=== PATIENT | female | born 1975 | race Caucasian/White ===

== ENCOUNTER → 2017-02-09 | Outpatient (CLI) | payer MEDICAID ==
--- NOTE | 2017-02-10 09:06 | MM ---
Reason for exam: screening (asymptomatic). Last mammogram was performed 1 year ago. History: Patient had first child at age 33. Family history of breast cancer in maternal grandmother. Benign excisional biopsy of the left breast, 2014. Taking hormonal contraceptives for 1 year. Physical Findings: A clinical breast exam by your physician is recommended on an annual basis and results should be correlated with mammographic findings. MG 3D Screening Mammo W/Cad Bilateral CC and MLO view(s) were taken. Prior study comparison: February 07, 2016, bilateral MG 3d screening mammo w/cad. January 24, 2014, mammogram, performed at [facility]. The breast tissue is extremely dense which could obscure a lesion on mammography. Finding #1: There is a 10 mm equal density (isodense), obscured mass in the central position of the right breast. Finding #2: There are typically benign calcifications in both breasts. Previous mammotome biopsy in the left breast. ASSESSMENT: Incomplete: need additional imaging evaluation, BI-RAD 0 RECOMMENDATION: Special view mammogram and ultrasound of the right breast. [facility] will attempt to contact patient to return for supplemental views and ultrasound.
== END | disposition home or self-care (01) ==
LOC: RADMAMWWP 14:32
PROVIDERS: ATTEND Obstetrics & Gynecology
DX: Z12.31 Encounter for screening mammogram for malignant neoplasm of breast (principal)
CPT/HCPCS: 77063; G0202

== ENCOUNTER → 2017-02-11 | Outpatient (CLI) | payer MEDICAID ==
--- NOTE | 2017-02-11 12:42 | MM ---
Reason for exam: additional evaluation requested from abnormal screening. Last mammogram was performed less than 1 month ago. History: Patient had first child at age 33. Family history of breast cancer in maternal grandmother. Benign excisional biopsy of the left breast, 2014. Taking hormonal contraceptives for 1 year. Physical Findings: Nurse did not find any significant physical abnormalities on exam. MG 3D Work Up W/Cad RT Spot compression CC, spot compression MLO, and ML view(s) were taken of the right breast. Prior study comparison: February 09, 2017, bilateral MG 3d screening mammo w/cad. February 07, 2016, bilateral MG 3d screening mammo w/cad. The breast tissue is extremely dense which could obscure a lesion on mammography. There is a persistent 6.3mm mass upper outer quadrant right breast at middle depth. These results were verbally communicated with the patient and result sheet given to the patient on 02/11/17. ASSESSMENT: Incomplete: need additional imaging evaluation, BI-RAD 0 RECOMMENDATION: Ultrasound of the right breast. (upper outer quadrant)
--- NOTE | 2017-02-11 12:47 | USB ---
Reason for exam: additional evaluation requested from abnormal screening. History: Patient had first child at age 33. Family history of breast cancer in maternal grandmother. Benign excisional biopsy of the left breast, 2015. Taking hormonal contraceptives for 1 year. US Breast Workup Limited RT Technologist: Cheri Diallo Right breast ultrasound demonstrates a 0.6 x 0.4 x 0.8cm cystic lesion at 9 o'clock septations versus mass, a 0.5 x 0.4 x 0.5cm mixed lesion at the nipple for which an attempt to aspirate and if unsuccessful a biopsy is recommended and a 0.7 x 0.3 x 0.5cm benign, cystic lesion at 9 o'clock. These results were verbally communicated with the patient and result sheet given to the patient on 02/11/17. ASSESSMENT: Suspicious, BI-RAD 4 RECOMMENDATION: Aspiration and ultrasound core biopsy of the right breast. Called Dr. Tay with mammographic findings and has scheduled an appointment for the patient for 02/26/17 at 9:[address] Velasco. Biopsy scheduled for 02/12/17 at 10:00. PRELIMINARY REPORT CALLED AND FAXED TO DR. VELASCO ON 02/11/17.
== END ==
LOC: RADMAMWWP 09:36
PROVIDERS: ATTEND Obstetrics & Gynecology
DX: R92.8 Other abnormal and inconclusive findings on diagnostic imaging of breast (principal); Z80.3 Family history of malignant neoplasm of breast
CPT/HCPCS: 76642; G0206; G0279

== ENCOUNTER → 2017-02-12 | Day surgery (SDC) | payer MEDICAID ==
[2017-02-12 10:13] VITALS: RESP 16; BMI 24.0
[2017-02-12 11:37] VITALS: BP 115/76; PULSE 62; TEMP 98.5
--- NOTE | 2017-02-12 13:45 | USB ---
EXAMINATION TYPE: US biopsy breast VAD RT, Post biopsy diagnostic mammo RT wo CAD DATE OF EXAM: 02/12/2017 CLINICAL HISTORY: 41-year-old female R92.8 Abn mammo. TECHNIQUE: Ultrasound guided core biopsy of the right breast. COMPARISON: 02/11/2017 and 02/09/2017 FINDINGS: The procedure of ultrasound guided core biopsy was explained to the patient. Benefits, alternatives, and risks were discussed. An informed consent was then obtained. The patient was placed in supine positioning for imaging and for the procedure. The overlying skin was prepped and draped in usual sterile fashion. Lidocaine was used as anesthetic into the skin and subcutaneous tissue up to area of concern in the right breast. The round 5 x 4 mm hypoechoic structure in the subareolar region shows posterior through transmission. Under ultrasound guidance, a 13-gauge vacuum-assisted mammotome biopsy device was used to obtain 4 core samples. Following this, a coil clip was left at the site of biopsy. The lesion collapsed after the first pass suggesting a complicated cyst. The patient tolerated the procedure well without any immediate complication. The patient was kept in the radiology department for short stay after the procedure and then discharged home in stable condition. Postprocedure mammogram shows a coil clip in the 5:00 position. IMPRESSION: Successful, uncomplicated ultrasound guided core biopsy of area of concern in the right breast, a complicated cyst is favored. Full pathology results to follow. RECOMMENDATION: 1. Follow pathology results. 2. In the event of a benign biopsy, six-month follow-up right breast ultrasound is recommended for the 9:00 cyst cluster versus complex cyst which probably corresponds to the initially questioned mammographic finding. Pathology Results: Benign BREAST, RIGHT, ULTRASOUND GUIDED CORE BIOPSY: FIBROCYSTIC CHANGE (STROMAL FIBROSIS, CYST FORMATION, APOCRINE METAPLASIA, ADENOSIS, FIBROADENOMATOUS HYPERPLASIA AND DUCT HYPERPLASIA). Recommendation Follow up mammogram and ultrasound of the right breast in 6 months. (with particular attention to the 9 o'clock cystic cluster versus complex cyst) CLEOPATRA
== END ==
LOC: RADUSWWP 09:49
PROVIDERS: ATTEND Surgery
DX: N60.31 Fibrosclerosis of right breast (principal); N60.01 Solitary cyst of right breast; R92.8 Other abnormal and inconclusive findings on diagnostic imaging of breast; N60.81 Other benign mammary dysplasias of right breast; N60.21 Fibroadenosis of right breast; Z88.8 Allergy status to other drugs, medicaments and biological substances
CPT/HCPCS: 88305; 19083; G0206; A4648; J2001

== ENCOUNTER → 2017-08-10 | Day surgery (SDC) | payer MEDICAID | LOC: CATHCVL 12:11 | PROVIDERS: ATTEND Internal Medicine Clinical Cardiac Electrophysiology | DX: I49.3 Ventricular premature depolarization (principal); Z53.9 Procedure and treatment not carried out, unspecified reason ==

== ENCOUNTER → 2017-08-10 | Outpatient (CLI) | payer MEDICAID ==
--- NOTE | 2017-08-13 12:09 | HM ---
HOLTER MONITOR REPORT This is a 48-hour Holter monitor. This 48-hour Holter monitor shows sinus rhythm with frequent PVCs. PVC burden is less than 3%. Occasional exaggerated sinus rhythm is noted. No nonsustained ventricular tachycardia noted. IMPRESSION: Frequent PVCs. PVC burden is about 3%, but without any nonsustained ventricular tachycardia. MMIMELDA / JAELN: [id number] /
== END | disposition home or self-care (01) ==
LOC: RADECHMAIN 12:53
PROVIDERS: ATTEND Internal Medicine Clinical Cardiac Electrophysiology
DX: I49.3 Ventricular premature depolarization (principal)
CPT/HCPCS: 93225; 93226

== ENCOUNTER → 2017-08-11 | Outpatient (CLI) | payer MEDICAID ==
--- NOTE | 2017-08-12 11:02 | ECHOF ---
Referral Reason:PVCS I49.3 MEASUREMENTS -------- HEIGHT: 162.6 cm WEIGHT: 63.5 kg BP: IVSd: 0.7 cm (0.6 - 1.1) LVIDd: 4.3 cm (3.9 - 5.3) LVPWd: 0.8 cm (0.6 - 1.1) IVSs: 1.2 cm LVIDs: 2.4 cm LVPWs: 1.3 cm LAESV Index (A-L): 19.78 ml/m Ao Diam: 2.8 cm (2.0 - 3.7) AV Cusp: 1.9 cm (1.5 - 2.6) LA Diam: 2.8 cm (2.7 - 3.8) MV EXCURSION: 14.100 mm (> 18.000) MV EF SLOPE: 118 mm/s (70 - 150) EPSS: 0.3 cm MV E Andrés: 0.74 m/s MV DecT: 163 ms MV A Andrés: 0.60 m/s MV E/A Ratio: 1.24 RAP: 5.00 mmHg RVSP: 20.60 mmHg FINDINGS -------- Sinus rhythm with extra systolic beats. This was a technically good study. The left ventricular size is normal. Left ventricular wall thickness is normal. Overall left vent ricular systolic function is normal with, an EF between 55 - 60 %. The right ventricle is normal in size and function. The left atrium is normal in size. The right atrium is normal in size. Aneurysmal Interatrial septum. The aortic valve is trileaflet, and appears structurally normal. No aortic stenosis or regurgitation. Mild mitral regurgitation is present. Trace tricuspid regurgitation present. The right ventricular systolic pressure, as measured by Dopp ler, is 20.60mmHg. Pulmonic valve appears structurally normal. The aortic root size is normal. The pericardium is normal. CONCLUSIONS -------- 1. Sinus rhythm with extra systolic beats. 2. This was a technically good study. 3. The left ventricular size is normal. 4. Left ventricular wall thickness is normal. 5. Overall left ventricular systolic function is normal with, an EF between 55 - 60 %. 6. The right ventricle is normal in size and function. 7. The left atrium is normal in size. 8. The right atrium is normal in size. 9. Aneurysmal Interatrial septum. 10. The aortic valve is trileaflet, and appears structurally normal. No aortic stenosis or regurgitat ion. 11. Mild mitral regurgitation is present. 12. Trace tricuspid regurgitation present. 13. The right ventricular systolic pressure, as measured by Doppler, is 20.60mmHg. 14. Pulmonic valve appears structurally normal. 15. The aortic root size is normal. 16. The pericardium is normal. DIRECT CARE STAFFER: Che Merrill RDCS
== END ==
LOC: RADECHMAIN 12:58
PROVIDERS: ATTEND Internal Medicine Clinical Cardiac Electrophysiology
DX: I34.0 Nonrheumatic mitral (valve) insufficiency (principal); Q21.1 Atrial septal defect
CPT/HCPCS: 93306

== ENCOUNTER → 2017-08-19 | Outpatient (CLI) | payer MEDICAID ==
--- NOTE | 2017-08-20 08:18 | USB ---
Reason for exam: follow-up at short interval from prior study. History: Patient had first child at age 33. Family history of breast cancer in maternal grandmother. Benign US biopsy breast VAD RT of the right breast, February 12, 2017. Benign excisional biopsy of the left breast, 2014. Taking hormonal contraceptives for 1 year. Physical Findings: Nurse did not find any significant physical abnormalities on exam. US Breast RT Right breast ultrasound includes all four quadrants, the retroareolar region and axilla. Finding demonstrates no cystic or solid lesion seen. These results were verbally communicated with the patient and result sheet given to the patient on 08/19/17. ASSESSMENT: Negative, BI-RAD 1 RECOMMENDATION: Return to routine screening mammogram schedule for both breasts. Back on schedule for February 2018.
== END | disposition home or self-care (01) ==
LOC: RADUSWWP 15:02
PROVIDERS: ATTEND Surgery
DX: R92.8 Other abnormal and inconclusive findings on diagnostic imaging of breast (principal)

== ENCOUNTER → 2017-10-16 | Outpatient (CLI) | payer MEDICAID ==
[2017-10-16 08:02] LABS: Basophils % (A) 1 %; Eosinophils # (A) 0.5 k/uL (0-0.7); Eosinophils % (A) 9 %; HCT 44.4 % (34.0-46.0); HGB 15.1 gm/dL (11.4-16.0); Lymphocytes # (A) 1.2 k/uL (1.0-4.8); Lymphocytes % (A) 23 %; MCHC 34.1 g/dL (31.0-37.0); MCV 88.1 fL (80.0-100.0); Mean Platelet Volume 6.4; Monocytes # (A) 0.4 k/uL (0-1.0); Monocytes % (A) 9 %; Neutrophils # (A) 2.8 k/uL (1.3-7.7); Neutrophils % (A) 56 %; Platelet Count 250 k/uL (150-450); RBC 5.04 m/uL (3.80-5.40); RDW 13.4 % (11.5-15.5); WBC 5.1 k/uL (3.8-10.6)
[2017-10-16 08:36] LABS: T4, Free (Free Thyroxine) 1.36 ng/dL (0.78-2.19)
[2017-10-16 11:59] LABS: Iron Saturation 35.78 (12.00-45.00)
== END | disposition home or self-care (01) ==
LOC: LABWHC1 07:04
PROVIDERS: ATTEND Internal Medicine Geriatric Medicine
DX: E55.9 Vitamin D deficiency, unspecified (principal); I49.3 Ventricular premature depolarization; E61.1 Iron deficiency; R73.9 Hyperglycemia, unspecified; E03.9 Hypothyroidism, unspecified; Z13.220 Encounter for screening for lipoid disorders
CPT/HCPCS: 36415; 80061; 82652; 83036; 83540; 83550; 84439; 84443; 85025

== ENCOUNTER 2019-07-04 06:52 | Emergency (ER) | payer MEDICAID ==
[2019-07-04 07:00] VITALS: BP 111/79; PULSE 81; RESP 18; TEMP 98.2
[2019-07-04 07:24] LABS: Amorphous Sediment,Urine Occasional /hpf; Appearance,Urine Cloudy (Clear); Bacteria,Urine Rare /hpf; Bilirubin,Urine Negative (Negative); Blood,Urine Moderate (Negative); Color,Urine Yellow; Glucose,Urine (UA) Negative (Negative); Ketones,Urine Negative (Negative); Leukocyte Esterase,Urine Negative (Negative); Mucus,Urine Occasional /hpf; Nitrite,Urine Negative (Negative); Protein,Urine Negative (Negative); RBC,Urine 58 /hpf (0-5); Specific Gravity,Urine 1.019 (1.001-1.035); Squamous Epithelial Cell,Urine 2 /hpf (0-4); Urobilinogen,Urine <2.0 mg/dL (<2.0); WBC,Urine 3 /hpf (0-5)
--- NOTE | 2019-07-04 07:27 | ED ---
Abdominal Pain HPI - General Source: patient, RN notes reviewed Mode of arrival: ambulatory Limitations: no limitations <Demetrio Jimenes - Last Filed: 07/04/19 07:42> <Portia Proctor - Last Filed: 07/04/19 22:36> - General Chief Complaint: Abdominal Pain Stated Complaint: Rt Abd/Flank Pain Time Seen by Provider: 07/04/19 07:02 - History of Present Illness Initial Comments: This is a 43-year-old female presents emergency Department chief complaint right flank pain. Patient states her some onset of right flank pain. All way around. Patient states that she had nausea, vomiting. Patient states she did not feel well throughout the night states that nothing made the pain feel better or worse with states that now the pain is completely resolved she has no current nausea vomiting no fevers or chills patient has no dysuria but states that she has some urinary frequency and hesitancy. She has no history kidney stones. Patient denies chest pain, shortness breath, headache or dizziness. He has had a prior exploratory laparotomy for infertility. Patient had no other prior abdominal surgeries. Patient denies significant diarrhea or constipation. Patient offers no other associated symptoms. (Demetrio Jimenes) - Related Data Home Medications Medication Instructions Recorded Confirmed No Known Home Medications 07/04/19 07/04/19 Allergies Allergy/AdvReac Type Severity Reaction Status Date / Time promethazine [From Phenergan] AdvReac Unknown Verified 07/04/19 07:00 Review of Systems ROS Other: All systems not noted in ROS Statement are negative. <Demetrio Jimenes - Last Filed: 07/04/19 07:42> ROS Other: All systems not noted in ROS Statement are negative. <Portia Proctor - Last Filed: 07/04/19 22:36> ROS Statement: Those systems with pertinent positive or pertinent negative responses have been documented in the HPI. Past Medical History Past Medical History: No Reported History History of Any Multi-Drug Resistant Organisms: None Reported Additional Past Surgical History / Comment(s): Exploratory laprascopy, benign needle bx. left breast 2015 Past Anesthesia/Blood Transfusion Reactions: No Reported Reaction Past Psychological History: No Psychological Hx Reported Smoking Status: Never smoker Past Alcohol Use History: Occasional Past Drug Use History: None Reported <Demetrio Jimenes - Last Filed: 07/04/19 07:42> General Exam Limitations: physical limitation General appearance: alert, in no apparent distress Head exam: Present: atraumatic, normocephalic, normal inspection Eye exam: Present: normal appearance, PERRL, EOMI. Absent: scleral icterus, conjunctival injection, periorbital swelling ENT exam: Present: normal exam, mucous membranes moist Neck exam: Present: normal inspection, full ROM. Absent: tenderness, meningismus, lymphadenopathy Respiratory exam: Present: normal lung sounds bilaterally. Absent: respiratory distress, wheezes, rales, rhonchi, stridor Cardiovascular Exam: Present: regular rate, normal rhythm, normal heart sounds. Absent: systolic murmur, diastolic murmur, rubs, gallop, clicks GI/Abdominal exam: Present: soft, normal bowel sounds. Absent: distended, tenderness (Patient has no reported pain at this time), guarding, rebound, rigid Back exam: Absent: CVA tenderness (R), CVA tenderness (L) Neurological exam: Present: alert, oriented X3, CN II-XII intact Skin exam: Present: warm, dry, intact, normal color. Absent: rash <Demetrio Jimenes - Last Filed: 07/04/19 07:42> Course Vital Signs 07/04/19 06:55 Temperature 98.2 F Pulse Rate 81 Respiratory 18 Rate Blood Pressure 111/79 O2 Sat by Pulse 98 Oximetry Medical Decision Making <Demetrio Jimenes - Last Filed: 07/04/19 07:42> <Portia Proctor - Last Filed: 07/04/19 22:36> - Medical Decision Making 43-year-old female presented for right flank pain. Patient's urinalysis revealed there is unremarkable blood, no significant evidence of urinary tract infection. Patient also likely past kidney stone. Patient states symptomatically this time. Patient be discharged stable condition return parameters were discussed. (Demetrio Jimenes) I was available for consultation in the emergency department. The history and physical exam were done by the midlevel provider. I was consulted for this patients care. I reviewed the case with the midlevel provider and based on their presentation of the patient, I agree with the assessment, medical decision making and plan of care as documented. Patient must follow up with PCP to ensure resolution of blood in urine. Chart was dictated using [employer] dictation software. Attempts were made to cor rect any dictation errors however some typographical errors may persist. (Portia Proctor) - Lab Data Lab Results 07/04/19 07/04/19 Range/Units 07:15 07:15 Urine Color Yellow Urine Appearance Cloudy H (Clear) Urine pH 7.0 (5.0-8.0) Ur Specific [place] 1.019 (1.001-1.035) Urine Protein Negative (Negative) Urine Glucose (UA) Negative (Negative) Urine Ketones Negative (Negative) Urine Blood Moderate H (Negative) Urine Nitrite Negative (Negative) Urine Bilirubin Negative (Negative) Urine Urobilinogen <2.0 (<2.0) mg/dL Ur Leukocyte Esterase Negative (Negative) Urine RBC 58 H (0-5) /hpf Urine WBC 3 (0-5) /hpf Ur Squamous Epith Cells 2 (0-4) /hpf Amorphous Sediment Occasional H (None) /hpf Urine Bacteria Rare H (None) /hpf Urine Mucus Occasional H (None) /hpf Urine HCG, Qual Not Detected (Not Detectd) Disposition Is patient prescribed a controlled substance at d/c from ED?: No Time of Disposition: 07:44 <Demetrio Jimenes - Last Filed: 07/04/19 07:42> <Portia Proctor - Last Filed: 07/04/19 22:36> Clinical Impression: Hematuria, Kidney stone on right side Disposition: HOME SELF-CARE Condition: Stable Instructions (If sedation given, give patient instructions): Kidney Stones (ED) Additional Instructions: Please return to the Emergency Department if symptoms worsen or any other concerns. Referrals: Foster Carcamo MD [Primary Care Provider] - 1-2 days Mina Toribio MD [STAFF PHYSICIAN] - 1-2 days
--- NOTE | 2019-07-04 07:41 | XR ---
EXAMINATION TYPE: XR KUB DATE OF EXAM: 07/04/2019 7:34 AM CLINICAL HISTORY: Right flank pain TECHNIQUE: Single upright image of the abdomen is obtained. COMPARISON: None. FINDINGS: Scattered gas is seen in non-distended small bowel loops. Gas and fecal material is seen in non-distended colon. There is no pneumoperitoneum or abnormal calcification appreciated. The lung ba ses are clear and the osseous structures are intact. IMPRESSION: Mild degree right hemicolonic fecal stasis in an overall nonobstructive bowel gas pattern .
[2019-07-04] MEDS ORDERED: ONDANSETRON 4 MG ODT STARTER PACK 2 TAB BTL PO STA (07:43)
[2019-07-04] MEDS ORDERED: IBUPROFEN 600 MG STARTER PACK 4 TAB BTL PO STA (07:43)
== END 2019-07-04 07:52 | disposition home or self-care (01) ==
LOC: EC 06:52
DX: N20.0 Calculus of kidney (principal); Z88.8 Allergy status to other drugs, medicaments and biological substances
CPT/HCPCS: 81001; 81025; 74018; 99284; S0119